=== PATIENT | female | born 1960 | race Two or more races ===

== ENCOUNTER 2017-10-14 07:13 | Outpatient (CLI) | payer BC | END 2017-10-14 23:59 | disposition home or self-care (01) | LOC: DIABETIC 07:13 | PROVIDERS: ATTEND Specialist | DX: E11.65 Type 2 diabetes mellitus with hyperglycemia (principal) | CPT/HCPCS: G0108 ==

== ENCOUNTER 2018-02-23 04:33 | Outpatient (CLI) | payer BC | END 2018-02-23 23:59 | disposition home or self-care (01) | LOC: DIABETIC 04:33 | PROVIDERS: ATTEND Specialist | DX: E11.9 Type 2 diabetes mellitus without complications (principal) | CPT/HCPCS: G0108 ==

== ENCOUNTER 2019-01-05 02:27 | Outpatient (CLI) | payer BC | END 2019-01-05 23:59 | disposition home or self-care (01) | LOC: DIABETIC 02:27 | PROVIDERS: ATTEND Specialist | DX: E11.65 Type 2 diabetes mellitus with hyperglycemia (principal); Z79.84 Long term (current) use of oral hypoglycemic drugs | CPT/HCPCS: G0108 ==

== ENCOUNTER 2019-04-06 04:53 | Outpatient (CLI) | payer BC | END 2019-04-06 23:59 | disposition home or self-care (01) | LOC: DIABETIC 04:53 | PROVIDERS: ATTEND Specialist | DX: E11.9 Type 2 diabetes mellitus without complications (principal); Z71.3 Dietary counseling and surveillance | CPT/HCPCS: G0108 ==

== ENCOUNTER 2019-07-06 04:31 | Outpatient (CLI) | payer BC | END 2019-07-06 23:59 | disposition home or self-care (01) | LOC: DIABETIC 04:31 | PROVIDERS: ATTEND Specialist | DX: E11.69 Type 2 diabetes mellitus with other specified complication (principal) | CPT/HCPCS: G0108 ==